=== PATIENT | male | born 1950 | race Caucasian/White ===

== ENCOUNTER → 2023-09-14 07:52 | Outpatient (REF) | payer MEDICARE, OTHER, SELFPAY ==
[2023-09-14 09:54] LABS: Glycohemoglobin (HgbA1c) 6.9 % (4.0-5.6)
[2023-09-14 11:48] LABS: HDL Cholesterol 42 mg/dl; LDL Cholesterol, Calculated 65 mg/dl; Total Cholesterol 128 mg/dl (50-199); Triglyceride 106 mg/dl (10-149); Very Low Density Lipoprotein 21 mg/dl (0-30)
== END ==
LOC: REG 07:52
PROVIDERS: ATTENDING PHYSICIAN Family Medicine
DX: E11.51 Type 2 diabetes mellitus with diabetic peripheral angiopathy without gangrene (principal)
CPT/HCPCS: 36415; 80061; 83036

== ENCOUNTER 2023-11-11 11:04 | Emergency (ER) | payer MEDICARE, OTHER, SELFPAY ==
[2023-11-11] VITALS (7 sets, daily range): BP systolic 81–167; BP diastolic 55–80; PULSE 73–84
[2023-11-11 11:42] LABS: % Basophils 0.8 % (0-2); % Eosinophils 1.2 % (0-6); % Immature Granulocytes 0.7 % (0-0.5); % Lymphocytes 12.8 % (20.5-51.1); % Monocytes 8.2 % (1.7-9.3); % Neutrophils 76.3 % (42.2-75.2); Absolute Basophils 0.1 10^3/uL (0-0.2); Absolute Eosinophils 0.1 10^3/uL (0-0.7); Absolute Immature Granulocytes 0.1 10^3/uL (0-0.05); Absolute Monocytes 0.6 10^3/uL (0.1-0.6); Absolute Neutrophils 5.7 10^3/uL (1.4-6.5); Hematocrit 43.9 % (39.0-52.0); Hemoglobin 15.5 g/dL (13.0-18.0); Mean Corp Hgb Conc. 35.3 g/dL (33.0-37.0); Mean Corpuscular Hgb 32.3 pg (27.0-31.0); Mean Corpuscular Volume 91.5 fL (80.0-94.0); Mean Platelet Volume 9.7 fL (7.4-10.4); Nucleated Red Blood Cells % 0 % (-); Platelet Count 224 10^3/uL (130-400); Red Cell Dist. Width 12.4 % (11.5-14.5); White Blood Cell Count 7.5 10^3/uL (4.8-10.8)
--- NOTE | 2023-11-11 12:06 | ED.GENMED ---
History of Present Illness
General
Chief Complaint: Fainting Sensation
Time Seen by Provider: 11/11/23 11:49
History of Present Illness
History of Present Illness:
73-year-old male with history of peripheral vascular disease, bilateral carotid disease, coronary artery disease status post CABG, presents to the emergency department for evaluation of a near syncopal event that occurred today. He states that ever
since his open heart surgery he has had orthostatic dizziness however not as severe as his symptoms today. Notes that he had severe orthostatic dizziness in the hospital after surgery and was started on midodrine but this was eventually
discontinued. He currently feels well while lying still in the exam bed. Nursing notes indicate that the patient is profoundly orthostatic on arrival.
Past History
Past History
ED Past Medical History: CAD, CVA, GERD, HTN, Hypercholesterolemia, NIDDM and Other (Carotid artery disease, obstructive sleep apnea, arthritis, cataracts)
ED Past Surgical History: Appendectomy, Orthopedic and Other (cea, multiple cardiac stents)
Social History
Tobacco: Former smoker
Alcohol: None
Drug: None
Personal: Other
Living: with family
Employment: Employed
Review of Systems
Review of Systems
Allergies reviewed?: Yes
All Other Systems: ROS reviewed and negative except as documented in HPI and ROS
Phy Exam
Physical Exam
Physical Exam:
GEN: Well appearing, NAD, WDWN
HEENT: Oral mucosa moist, no scleral icterus
Cardiac: Regular rate And rhythm, no murmurs
Lung: No respiratory distress, no tachypnea
MSK: No gross deformity or injuries
Skin: Good color, no pallor or jaundice, no rashes
Neuro: AO x3, moves all extremities freely
Psych: Calm, cooperative
Course
Orders/Labs/Results
Orders:
Orders
11/11/23 11:21
Electrocardiogram (*1) Urgent
Reason for Study: Syncope
EKG- Treatment ONCE
11/11/23 11:33
Complete Blood Count/With Diff Urgent
Comprehensive Metabolic Panel Urgent
Troponin I Urgent
Abnormal Lab Results
11/11/23
11:33
MCH 32.3 H pg
(27.0-31.0)
Abs Immat Gran (auto) 0.1 H 10^3/uL
(0-0.05)
Absolute Lymphs (auto) 1.0 L 10^3/uL
(1.2-3.4)
Immature Gran % 0.7 H %
(0-0.5)
Neutrophils % 76.3 H %
(42.2-75.2)
Lymphocytes % 12.8 L %
(20.5-51.1)
BUN 21 H mg/dl
(9-20)
Creatinine 1.4 H mg/dL
(0.7-1.3)
Glucose 189 H mg/dl
(70-99)
11/11/23 11:33
11/11/23 11:33
Vital Signs
Initial and Last Documented VS:
Initial Vital Signs
Temp Pulse Resp BP Pulse Ox
98.4 F 80 16 98/60 100
11/11/23 11:16 11/11/23 11:16 11/11/23 11:16 11/11/23 11:16 11/11/23 11:16
Last Documented Vital Signs
Temp Pulse Resp BP Pulse Ox
98.4 F 63 15 137/80 96
11/11/23 11:16 11/11/23 13:45 11/11/23 13:45 11/11/23 13:00 11/11/23 13:45
MDM/Problems Addressed
MDM/Problems Addressed:
Patient is markedly orthostatic, it sounds as though this has been ongoing for several months/greater than 1 year, likely magnified today due to hypovolemia. I discussed the case with cardiology and we will decrease the isosorbide to 30 mg and have
him follow-up within the next 2 weeks for reevaluation
*Critical Care Note
Total Time (30-74mins, 75-104mins- exclusive of procedures): Not Applicable
ED Attending Note
-
Portions of this chart may have been created with voice recognition software.� Occasional wrong word or��sound alike� substitutions may have occurred due to the inherent limitations of voice recognition software.
Discharge Plan
Departure
Patient Disposition: Home (Routine Discharge)
Date of Disposition: 11/11/23
Time of Disposition: 13:35
Patient with high blood pressure during this ER visit?: No
Discharge Problem:
Orthostatic hypotension
Instructions: Orthostatic hypotension
Prescriptions:
New
isosorbide mononitrate 30 mg tablet extended release 24 hr
30 mg PO DAILY Qty: 30 2RF
No Action
escitalopram oxalate 10 MG tablet
10 mg PO DAILY
aspirin 81 MG tablet,delayed release (DR/EC)
81 mg PO DAILY
Patient Comments:
also took 4 baby asa pre adm due to cp
empagliflozin [Jardiance] 10 MG tablet
10 mg PO DAILY
melatonin 5 MG tablet
15 mg PO HS 0RF
pantoprazole 40 MG tablet,delayed release (DR/EC)
40 mg PO BID
acetaminophen 325 MG tablet
650 mg PO Q4HPRN PRN (Reason: mild pain) 0RF
glyburide-metformin 5 MG/500 MG tablet
2 tab PO BID
(DME) blood sugar diagnostic [Blood Glucose Test] 1 EACH strip
1 ea MC BID Qty: 100 0RF
Rx Instructions:
OneTouch Verio
E11.65
(DME) lancets 1 EACH misc
1 ea MC BID Qty: 100 0RF
Rx Instructions:
Delica Lancets
E11.65
atorvastatin 40 MG tablet
40 mg PO HS Qty: 30 3RF
midodrine 5 MG tablet
10 mg PO Q6H Qty: 120 3RF
Rx Instructions:
review with director medical surgical at next appt
clopidogrel 75 MG tablet
75 mg PO DAILY Qty: 30 3RF
Rx Instructions:
stop taking brilinta(ticagrelor), switched to plavix (clopidogrel)
Referrals:
Pablo Aldana MD [Active] -
Zackery Thakur MD [Family Provider] -
Activity Restrictions/Additional Instructions:
We are decreasing her isosorbide to 30 mg daily
Follow-up with your director medical surgical in 1 to 2 weeks
Make sure to hydrate adequately each day
Interventions
Interventions:
*Risk Screen - Suicide Last Done: 11/11/23 11:38
*General Assessment Last Done: 11/11/23 11:50
*Neglect/Abuse Screening Last Done: 11/11/23 11:38
ED- Fall Risk Assessment Last Done: 11/11/23 14:01
*ED COVID-19 Vaccine History Last Done: 11/11/23 11:50
*Nursing Disposition Last Done: 11/11/23 14:01
ED- Cardiac Assessment Last Done: 11/11/23 11:48
ED- Neurological Assessment Last Done: 11/11/23 11:48
Discharge Date and Time
Discharge Date/Time: 11/11/23 14:02
Print Language: LATVIAN
[2023-11-11 12:07] LABS: Troponin I < 0.012 ng/ml
[2023-11-11 12:35] LABS: ALT (SGPT) 13 U/L (0-50); AST (SGOT) 26 U/L (17-59); Albumin 4.3 g/dl (3.5-5.0); Alkaline Phosphatase 84 U/L (38-126); Blood Urea Nitrogen 21 mg/dl (9-20); Calcium 9.8 mg/dl (8.4-10.2); Carbon Dioxide 25 mmol/L (22-30); Chloride 101 mmol/L (98-107); Glucose 189 mg/dl (70-99); Potassium 4.7 mmol/L (3.5-5.1); Sodium 136 mmol/L (135-145); Total Protein 6.4 g/dl (6.3-8.2); eGFR 53.74
== END 2023-11-11 14:02 | disposition home or self-care (01) ==
LOC: EMR 11:04
PROVIDERS: EMERGENCY PHYSICIAN Student in an Organized Health Care Education/Training Program; FAMILY PHYSICIAN Family Medicine
DX: I95.1 Orthostatic hypotension (principal); I73.89 Other specified peripheral vascular diseases; I25.10 Atherosclerotic heart disease of native coronary artery without angina pectoris; Z95.1 Presence of aortocoronary bypass graft
CPT/HCPCS: 99284; 80053; 84484; 85025; 93005

== ENCOUNTER → 2023-12-08 08:33 | Outpatient (REF) | payer MEDICARE, OTHER, SELFPAY ==
[2023-12-08 10:57] LABS: HDL Cholesterol 37 mg/dl; LDL Cholesterol, Calculated 50 mg/dl; Total Cholesterol 116 mg/dl (50-199); Triglyceride 148 mg/dl (10-149); Very Low Density Lipoprotein 29 mg/dl (0-30)
== END ==
LOC: REG 08:33
PROVIDERS: ATTENDING PHYSICIAN Internal Medicine Cardiovascular Disease; FAMILY PHYSICIAN Family Medicine
DX: I73.9 Peripheral vascular disease, unspecified (principal); I65.21 Occlusion and stenosis of right carotid artery; Z95.1 Presence of aortocoronary bypass graft
CPT/HCPCS: 36415; 80061

== ENCOUNTER → 2024-02-18 07:22 | Outpatient (REF) | payer MEDICARE, OTHER, SELFPAY | LOC: EEG 07:22 | PROVIDERS: ATTENDING PHYSICIAN Specialist; FAMILY PHYSICIAN Family Medicine | DX: R55 Syncope and collapse (principal) | CPT/HCPCS: 95816 ==

== ENCOUNTER → 2024-03-23 10:07 | Outpatient (REF) | payer MEDICARE, OTHER, SELFPAY | LOC: RAD 10:07 | PROVIDERS: ATTENDING PHYSICIAN Surgery Vascular Surgery; FAMILY PHYSICIAN Family Medicine | DX: I65.21 Occlusion and stenosis of right carotid artery (principal); I73.9 Peripheral vascular disease, unspecified | CPT/HCPCS: 93880; 93922; 93925 ==

== ENCOUNTER → 2024-04-19 08:33 | Outpatient (REF) | payer MEDICARE, OTHER, SELFPAY ==
[2024-04-19 09:33] LABS: % Basophils 0.8 % (0-2); % Eosinophils 2.1 % (0-6); % Immature Granulocytes 0.4 % (0-0.5); % Lymphocytes 16.6 % (20.5-51.1); % Monocytes 9.1 % (1.7-9.3); Absolute Basophils 0.1 10^3/uL (0-0.2); Absolute Eosinophils 0.2 10^3/uL (0-0.7); Absolute Lymphocytes 1.2 10^3/uL (1.2-3.4); Absolute Monocytes 0.6 10^3/uL (0.1-0.6); Hematocrit 51.4 % (39.0-52.0); Hemoglobin 17.4 g/dL (13.0-18.0); Mean Corp Hgb Conc. 33.9 g/dL (33.0-37.0); Mean Corpuscular Hgb 31.6 pg (27.0-31.0); Mean Corpuscular Volume 93.5 fL (80.0-94.0); Mean Platelet Volume 10.1 fL (7.4-10.4); Nucleated Red Blood Cells % 0 % (-); Platelet Count 210 10^3/uL (130-400); Red Cell Dist. Width 12.5 % (11.5-14.5); White Blood Cell Count 7.1 10^3/uL (4.8-10.8)
[2024-04-19 09:48] LABS: ALT (SGPT) < 10 U/L (0-50); AST (SGOT) 19 U/L (17-59); Albumin 4.4 g/dl (3.5-5.0); Alkaline Phosphatase 85 U/L (38-126); Blood Urea Nitrogen 16 mg/dl (9-20); Calcium 9.7 mg/dl (8.4-10.2); Carbon Dioxide 28 mmol/L (22-30); Chloride 98 mmol/L (98-107); Glucose 149 mg/dl (70-99); HDL Cholesterol 50 mg/dl; LDL Cholesterol, Calculated 58 mg/dl; Potassium 4.7 mmol/L (3.5-5.1); Sodium 138 mmol/L (135-145); Total Bilirubin 0.7 mg/dl (0.2-1.3); Total Cholesterol 136 mg/dl (50-199); Total Protein 6.7 g/dl (6.3-8.2); Triglyceride 141 mg/dl (10-149); Very Low Density Lipoprotein 28 mg/dl (0-30); eGFR > 60.00
[2024-04-19 10:10] LABS: TSH Reflex To Free T4 3.63 uIU/ml (0.47-4.68)
[2024-04-19 10:18] LABS: Glycohemoglobin (HgbA1c) 6.4 % (4.0-5.6)
[2024-04-19 11:13] LABS: Microalbumin, Random Urine 2.2 mg/dl (0.6-1.7); Microalbumin/creatinine Ratio 25.5 mg/g
[2024-04-20 23:11] LABS: PSA Total 1.2 ng/mL (0.0-4.0)
== END ==
LOC: REG 08:33
PROVIDERS: ATTENDING PHYSICIAN Family Medicine
DX: E11.51 Type 2 diabetes mellitus with diabetic peripheral angiopathy without gangrene (principal); N40.1 Benign prostatic hyperplasia with lower urinary tract symptoms; Z12.5 Encounter for screening for malignant neoplasm of prostate; J98.11 Atelectasis
CPT/HCPCS: 36415; 80053; 80061; 82043; 82570; 83036; 84153; 84154; 84443; 85025

== ENCOUNTER → 2025-01-26 09:16 | Outpatient (REF) | payer MEDICARE, OTHER, SELFPAY ==
[2025-01-26 10:54] LABS: ALT (SGPT) 18 U/L (0-50); AST (SGOT) 19 U/L (17-59); Albumin 4.3 g/dl (3.5-5.0); Alkaline Phosphatase 83 U/L (38-126); Blood Urea Nitrogen 22 mg/dl (9-20); Calcium 9.6 mg/dl (8.4-10.2); Carbon Dioxide 29 mmol/L (22-30); Chloride 103 mmol/L (98-107); Glucose 81 mg/dl (70-99); HDL Cholesterol 38 mg/dl; LDL Cholesterol, Calculated 64 mg/dl; Potassium 4.3 mmol/L (3.5-5.1); Sodium 137 mmol/L (135-145); Total Protein 6.9 g/dl (6.3-8.2); Very Low Density Lipoprotein 32 mg/dl (0-30); eGFR > 60.00
[2025-01-26 11:54] LABS: Glycohemoglobin (HgbA1c) 6.3 % (4.0-5.9)
== END ==
LOC: REG 09:16
PROVIDERS: ATTENDING PHYSICIAN Family Medicine
DX: E11.52 Type 2 diabetes mellitus with diabetic peripheral angiopathy with gangrene (principal); I10 Essential (primary) hypertension; N18.32 Chronic kidney disease, stage 3b
CPT/HCPCS: 36415; 80053; 80061; 83036

== ENCOUNTER → 2025-03-28 14:01 | Outpatient (REF) | payer MEDICARE, OTHER, SELFPAY | LOC: RAD 14:01 | PROVIDERS: ATTENDING PHYSICIAN Surgery Vascular Surgery; FAMILY PHYSICIAN Family Medicine | DX: I65.21 Occlusion and stenosis of right carotid artery (principal) | CPT/HCPCS: 93880 ==